=== PATIENT | female | born 1945 | race Caucasian/White ===

== ENCOUNTER 2018-11-08 08:15 | Outpatient (CLI) | payer MEDICARE ==
--- NOTE | 2018-11-18 15:24 | MMO ---
BILATERAL SCREENING MAMMOGRAMS: Date: 11/08/18 HISTORY: Annual screening mammography. This patient's mammogram was interpreted with the assistance of computer-aided detection. COMPARISON: Prior studies obtained from [facility] on 11/19/13, 01/11/16, and 02/13/17. FINDINGS: There is a heterogeneously dense parenchymal pattern, which may lower the sensitivity of mammography. There are vascular calcifications and benign-appearing calcifications again seen in each breast. No dominant mass or suspicious grouping of microcalcifications are seen in either breast. IMPRESSION: BIRADS 2: Benign Finding(s) Routine annual mammographic screening is recommended. POS: [facility]
== END 2018-11-08 08:16 | disposition home or self-care (01) ==
LOC: SCSMAMMO 08:15
PROVIDERS: ATTEND Family Medicine
DX: Z12.31 Encounter for screening mammogram for malignant neoplasm of breast (principal)
CPT/HCPCS: 77067

== ENCOUNTER 2019-08-20 19:30 | Outpatient (CLI) | payer MEDICARE | END 2019-08-20 19:31 | disposition home or self-care (01) | LOC: SLEEPLAB 19:30 | PROVIDERS: ATTEND Family Medicine | DX: G47.33 Obstructive sleep apnea (adult) (pediatric) (principal); R53.83 Other fatigue; R06.83 Snoring; K21.9 Gastro-esophageal reflux disease without esophagitis; E11.9 Type 2 diabetes mellitus without complications; G47.00 Insomnia, unspecified; G47.10 Hypersomnia, unspecified | CPT/HCPCS: 95810 ==

== ENCOUNTER 2019-08-22 19:30 | Outpatient (CLI) | payer MEDICARE | END 2019-08-22 19:31 | disposition home or self-care (01) | LOC: SLEEPLAB 19:30 | PROVIDERS: ATTEND Family Medicine | DX: G47.33 Obstructive sleep apnea (adult) (pediatric) (principal); R53.83 Other fatigue | CPT/HCPCS: 95811 ==

== ENCOUNTER 2023-09-14 08:20 | Outpatient (CLI) | payer MEDICARE | END 2023-09-14 08:21 | disposition home or self-care (01) | LOC: RAD 08:20 | PROVIDERS: ATTEND Specialist | DX: K21.9 Gastro-esophageal reflux disease without esophagitis (principal) | CPT/HCPCS: 74246 ==

== ENCOUNTER 2024-08-21 09:17 | Outpatient (CLI) | payer MEDICARE | END 2024-08-21 09:18 | disposition home or self-care (01) | LOC: BICRAD 09:17 | PROVIDERS: ATTEND Family Medicine | DX: M25.552 Pain in left hip (principal); M47.816 Spondylosis without myelopathy or radiculopathy, lumbar region; M43.16 Spondylolisthesis, lumbar region | CPT/HCPCS: 72100 ==

== ENCOUNTER 2024-10-16 13:40 | Outpatient (CLI) | payer MEDICARE | END 2024-10-16 13:41 | disposition home or self-care (01) | LOC: BICMAMMO 13:40 | PROVIDERS: ATTEND Family Medicine | DX: M85.89 Other specified disorders of bone density and structure, multiple sites (principal) | CPT/HCPCS: 77080 ==